=== PATIENT | male | born 1960 | race Caucasian/White ===

== ENCOUNTER 2022-12-10 15:34 | Emergency (ER) | payer MEDICAID, SELFPAY ==
[2022-12-10 15:36] VITALS: BP 110/79; PULSE 107; RESP 16; TEMP 36.9; O2SAT 100; BMI 19.8
--- NOTE | 2022-12-10 15:54 | EX.ED.DYSGE1 ---
HPI History of Present Illness Chief Complaint: Dizziness Detail of Chief Complaint: Presents because of shakes x1 hour today and lightheadedness Informant: patient and family Onset/Context/Timing Onset: Weeks (Patient reports shaking episode in the morning x1 week also has GI symptoms) Context: Sudden Onset Timing: Intermittent (Shaking lasts up to 1 hour) Quality: Abnormal movement of arms and legs Location: Extremities Current Severity: Gone Maximum Severity: Severe Worsened by: Nothing Relieved by: None thing Associated Symptoms Associated Symptoms: Nausea with vomiting a couple of days ago and diarrhea today Narrative Narrative: Patient is a 62-year-old male who smokes 1 pack/day who presents to the emergency department because of not feeling well. He has not felt well for proxy 1 week. He reports shaking of his limbs in the morning up to 1 hour. He does report nausea. He had episode of vomiting a couple of days ago and had diarrhea today. He denies hematemesis, melena medic easier. He denied fever or chills. He denies headache. He denies ocular, visual or auditory symptoms. No trouble with speech or swallowing. He denies chest pain, cough or shortness of breath. He presently denies abdominal pain or nausea. He denies urologic symptoms. He denies paresthesia, anesthesia or motor weakness of his extremities or torso. He denies headache. He denies skin lesions other than scrapes. Prior similar symptoms: No Recent Illness/Hospitalization: No PFSH PFSH Medical History (Updated 12/10/22 @ 17:[address] Jesus Escobedo MD) AIDS Medical History no medical history no medical history Home Medications cholecalciferol (vitamin D3) 25 mcg (1,000 unit) capsule 25 mcg PO DAILY 12/10/22 [History Last Taken Unknown] multivitamin 1 tab PO DAILY 12/10/22 [History Last Taken Unknown] omega-3 900 mg-dha 360 mg-epa 455 mg-fish oil 1,000 mg capsule (Fish Oil) cap PO 12/10/22 [History Last Taken Unknown] Allergy/AdvReac Type Severity Reaction Status Date / Time No Known Allergies Allergy Verified 12/10/22 15:39 Surgical History (Updated 12/10/22 @ 16:21 by Thuy Greenberg) H/O abdominal surgery Surgical History no surgical history no surgical history Social History (Updated 12/10/22 @ 15:[address] Jesus Escobedo MD) Smoking Status: Current every day smoker tobacco type: cigarettes alcohol intake: current alcohol intake frequency: holidays/special occasions only substance use type: does not use ROS ROS ED Constitutional Constitutional ED: Denies chills, fever(s), subjective, sweats or weight loss Eyes Eyes: Denies blurry vision, change in vision or diplopia ENT ENT ED: Denies ear pain, rhinorrhea or sore throat Cardiovascular Cardiovascular: Denies chest pain, orthopnea, palpitations, paroxysmal nocturnal dyspnea or racing heartbeat Respiratory/Chest Respiratory/Chest: Denies cough, dyspnea, dyspnea on exertion, orthopnea or paroxysmal nocturnal dyspnea Gastrointestinal Gastrointestinal: Reports abdominal pain, diarrhea, nausea and vomiting; Denies constipation or melena Genitourinary Genitourinary ED: Denies dysuria, hematuria or urinary frequency Musculoskeletal Musculoskeletal: Denies arthralgias, back pain, myalgias or neck pain Integumentary Reports Abrasions; Denies abscess or rash Neurologic Neurologic: Reports weakness; Denies headache(s) or paresthesias Psychiatric Psychiatric: Denies anxiety or depression Endocrine Endocrinology: Denies cold intolerance or heat intolerance Hematologic/Lymphatic Hematologic/Lymphatic: Reports systems reviewed and no addt'l complaints, except as documented EXAM Physical Exam Const Vital Signs: 12/10/22 15:36 12/10/22 16:22 12/10/22 16:42 Temperature 98.5 F Temperature Source Temporal Pulse Rate 107 H 90 Respiratory Rate 16 19 H Respiratory Effort Normal Respiratory Pattern Normal Blood Pressure 110/79 108/77 Blood Pressure Mean 89 87 Pulse Ox 100 96 Oxygen Delivery Method Room Air Room Air 12/10/22 17:15 Temperature Temperature Source Pulse Rate 94 Respiratory Rate 15 Respiratory Effort Respiratory Pattern Blood Pressure 121/82 H Blood Pressure Mean 95 Pulse Ox 98 Oxygen Delivery Method Room Air Positive well nourished, well developed and unkempt General Appearance ED: unkempt, well developed and NAD; Negative for cyanotic, diaphoretic or pallor HEENT Reports dry mucous membranes HEENT Narrative: Head is atraumatic normocephalic. Ears normal. Nares patent. Posterior pharynx out erythema or exudate. Mouth ED: Yes dry mucous membranes Mouth: dry mucous membranes Eyes PERRL and EOMs intact bilaterally General Eye ED: Negative for pale conjunctiva or scleral icterus Neck no lymphadenopathy, supple and no JVD Chest Wall inspection of chest normal and palpation of chest normal Resp normal respiratory effort and clear to auscultation bilaterally Cardio regular rhythm, S1 normal heart sound, S2 normal heart sound and no murmurs Rate: tachycardic GI normal to inspection, nondistended, normoactive bowel sounds, non-tender, non-distended and no masses; Negative for hepatosplenomegaly GI Narrative: There is no palpable or pulsatile mass. There is no weight. Palpation: soft Back/Spine no CVA tenderness Extremity Extremity Narrative: Remedy exam is normal other than small contusions abrasion predominantly left anterior leg. Neuro oriented x3, CN's II-XII intact bilaterally and no sensory deficits noted Sensorium / Orientation: alert Motor Exam: strength 5/5 throughout Psych mental status grossly normal Appearance: unkempt Skin no rashes or lesions noted and skin turgor normal General Skin Exam: Negative for jaundice or pallor MDM MDM MDM Narrative Medical decision making narrative: Patient with reported shaking. Will obtain electrolyte panel to evaluate for problems with potassium or sodium. Also to evaluate for hypocalcemia. CBC to assess for anemia. Clinically does not appear anemic. Clinically appears dehydrated and is tachycardic. 1 L of normal saline was ordered. Since presently has no GI symptoms no GI meds were ordered. He states he does not have a physician. He moved from [place] approximately 1 year ago. History & Record Review Additional record(s) reviewed:: No prior records and Other (Records from [place] are [facility] Lab Data Attestation: I reviewed the patient's lab results. Lab results narrative: Like like panel is remarkable for a sodium of 133 and potassium 3.2 patient has evidence of pansinusitis with a white count of 1.5 thousand and an H&H 11.3 and 33.6 with normal indices. Differential is unremarkable. Labs: Laboratory Results - last 24 hr 12/10/22 16:30 WBC 1.5 L* RBC 3.65 L Hgb 11.3 L Hct 33.6 L MCV 92.1 MCH 31.0 MCHC 33.6 RDW Std Deviation 44.4 H RDW Coeff of Shamir 13.3 Plt Count 68 L MPV 12.1 H Immature Gran % (Auto) 1.400 H Neut % (Auto) 68.0 Lymph % (Auto) 15.6 L [place] % (Auto) 14.3 H Eos % (Auto) 0.0 Baso % (Auto) 0.7 Absolute Neuts (auto) 1.0 L Absolute Lymphs (auto) 0.23 L Nucleated RBC % 0 Differential Comment SEE COMMENTS Diff Path Review May foll Platelet Estimate MOD DEC RBC Morphology N CHROM Anisocytosis RARE Macrocytosis RARE Ovalocytes RARE Sodium 133 L Potassium 3.2 L Chloride 99 Carbon Dioxide 28.0 Anion Gap 6 BUN 11 Creatinine 0.92 Estim Creat Clear Calc 75.80 Est GFR (MDRD) Af Amer 107 Est GFR (MDRD) Non-Af 89 BUN/Creatinine Ratio 11.9 Glucose 94 Calcium 8.6 Treatment and Re-Evaluation :: Call was then placed to the export coordinator on-call for no doc. Discharge Plan Triage Chief Complaint: Dizziness ED Provider: Jesus Escobedo Dx/Rx/DC Orders Clinical Impression: Hyponatremia, Pancytopenia, Tobacco use, Hypokalemia Prescriptions: No Action Fish Oil 900 mg-360 mg- 455 mg-1,000 mg capsule PO cholecalciferol (vitamin D3) 25 mcg (1,000 unit) capsule 25 mcg PO DAILY multivitamin Tablet 1 tab PO DAILY Primary Care Provider: Care Physician,No Primary Referrals: Veronica Elaine MD [Med Staff - Active Staff] - As soon as possible Care Physician,No Primary [Primary Care Provider] - Activity Restrictions/Additional Instructions: Called Dr. Elaine's office in the morning and they will set up an appointment for next week Disposition Disposition: Home, Self Care
[2022-12-10] MEDS: 0.9% Normal Saline 1,000 ML 1000 ML IV (16:35)
[2022-12-10 16:38] LABS: Absolute Lymphocyte Count 0.23 X10^3/uL (0.83-4.51); Basophil# 0.01 X10^3/uL; Basophil% 0.7 % (0-1); Hematocrit 33.6 % (40-54); Hemoglobin 11.3 g/dL (13.0-16.5); Lymphocyte # 0.23 X10^3/ul (0.83-4.51); Lymphocyte % 15.6 % (19-41); Mean Corp Hgb Conc 33.6 g/dL (32-36); Mean Corpuscular Volume 92.1 fL (80-94); Mean Platelet Vol. 12.1 fl (6.2-12.0); Monocyte# 0.21 X10^3/uL; Monocyte% 14.3 % (0-10); NRBC Flagged by Analyzer 0 % (0-5); POSITIVE COUNT YES; POSITIVE DIFFERENTIAL YES; Platelet Count 68 K/mm3 (150-450); RBC Distribution Width CV 13.3 % (11.6-14.6); RBC Distribution Width SD 44.4 fl (35.1-43.9); Red Blood Count 3.65 M/mm3 (4.6-6.2)
[2022-12-10 16:42] VITALS: BP 108/77; PULSE 90; RESP 19; O2SAT 96
[2022-12-10 16:50] LABS: Anion Gap 6 (5-15); BUN 11 mg/dL (7-18); BUN/Creat Ratio 11.9 RATIO (10-20); Calcium,Total 8.6 mg/dL (8.5-10.1); Chloride 99 mmol/L (98-107); Creatinine, Serum 0.92 mg/dL (0.70-1.30); EST Glomerular Filtration Rate 89 mL/min (>60); Est Glom Filt Rate - Afr Amer 107 mL/min (>60); Glucose 94 mg/dL (74-106); Potassium 3.2 mmol/L (3.5-5.1); Sodium Level 133 mmol/L (136-145)
[2022-12-10 16:58] LABS: Differential Indicated SCAN CRITERIA MET; White Blood Count 1.5 K/mm3 (4.4-11.0)
[2022-12-10 17:08] LABS: Anisocytosis RARE; Differential Comment SEE COMMENTS; Macrocytosis RARE; Ovalocyte RARE; Platelet Estimate MOD DEC (ADEQ); Red Cell Morphology N CHROM NORMAL (NORM C&C)
[2022-12-10 17:15] VITALS: BP 121/82; PULSE 94; RESP 15; O2SAT 98
[2022-12-10 17:38] VITALS: RESP 18
[2022-12-10 18:03] LABS: Vitamin B12 1523 pg/mL (211-911)
[2022-12-10 18:05] LABS: International Normalized Ratio 1.5
[2022-12-10 18:13] LABS: Iron 26 ug/dL (65-175); Iron Binding Capacity,Total 115 ug/dL (250-450); LDH 252 U/L (87-241); PERCENT IRON SATURATION 22.6 % (15.0-55.0); Uric Acid 5.7 mg/dL (3.5-7.2)
[2022-12-14 13:54] LABS: Pathologist Review Reviewed
== END 2022-12-10 17:39 | disposition home or self-care (01) ==
PROVIDERS: Emergency Provider Emergency Medicine; Visit Provider Emergency Medicine
DX: E87.6 Hypokalemia (principal); D61.818 Other pancytopenia; E87.1 Hypo-osmolality and hyponatremia; F17.210 Nicotine dependence, cigarettes, uncomplicated
CPT/HCPCS: 80048; 82607; 82746; 83540; 83550; 83615; 84550; 85025; 85610; 85730; 96360; 99282; J7030; A4216